=== PATIENT | female | born 1995 | race Caucasian/White ===

== ENCOUNTER 2023-10-20 09:12 | Emergency (ER) | payer OTHER ==
[~2023-10-20] VITALS: Ht 175.3 cm; Wt 90.0 kg
[2023-10-20] MEDS ORDERED: fentaNYL 100 MCG/2 ML VIAL IV ONE (10:00)
[2023-10-20] MEDS ORDERED: NORCO 325 MG-51 TA1 PO (12:51)
[2023-10-20] MEDS ORDERED: CYCLOBENZ5 MG PO (12:53)
[2023-10-20] MEDS ORDERED: Home Cyclobenzaprine 10 MG #2 TABS/PACK PO ONE (13:00)
[2023-10-20] MEDS ORDERED: Home HYDROcodone/Acetaminophen 5/325 MG #4 TABS/PACK PO ONE ×2 (13:30→18:00)
[2023-10-20 14:00] VITALS: BP 124/78
== END 2023-10-20 13:45 | disposition home or self-care (01) ==
LOC: ED 09:12
DX: S00.01XA Abrasion of scalp, initial encounter (principal); S30.810A Abrasion of lower back and pelvis, initial encounter; M25.551 Pain in right hip; V80.010A Animal-rider injured by fall from or being thrown from horse in noncollision accident, initial encounter; Y93.52 Activity, horseback riding
CPT/HCPCS: J3010